=== PATIENT | male | born 1940 | race Caucasian/White ===

== ENCOUNTER 2022-09-06 12:05 | Day surgery (SDC) | payer OTHER ==
[2022-09-06] VITALS (9 sets, daily range): BP systolic 135–176; BP diastolic 75–105
[~2022-09-06] VITALS: Ht 175.3 cm; Wt 88.4 kg
[2022-09-06] MEDS ORDERED: LORazepam 0.5 MG tablet PO PRN (12:25)
[2022-09-06] MEDS ORDERED: diphenhydrAMINE 25mg capsule PO PRN (12:25)
[2022-09-06] MEDS ORDERED: normal saline 1,000 ML IV SCH (12:25)
[2022-09-06] MEDS ORDERED: MULT-1249 PO (12:34)
[2022-09-06] MEDS ORDERED: EZET10TA48 PO (12:34)
[2022-09-06] MEDS ORDERED: ATOR-2 PO (12:34)
[2022-09-06] MEDS ORDERED: ASPI-611 PO (12:34)
[2022-09-06] MEDS ORDERED: NITR0.4T48 SL (12:34)
[2022-09-06 12:58] LABS: ALBUMIN 3.9 G/DL (3.4-5.0); ANION GAP 8 (8-16); BLOOD UREA NITROGEN 18 MG/DL (7-18); BUN/CREATININE RATIO 19.4 (10.0-20.0); CALCIUM 9.2 MG/DL (8.5-10.1); CHLORIDE 106 MMOL/L (99-107); CREATININE 0.93 MG/DL (0.60-1.10); GLUCOSE 104 MG/DL (70-104); POTASSIUM 4.3 MMOL/L (3.5-5.1); SODIUM 140 MMOL/L (135-145); TOTAL CARBON DIOXIDE 26.5 MMOL/L (24-32); eGFR 78 ML/MIN
[2022-09-06 13:09] LABS: BASOPHILS % (AUTO) 0.3 % (0-1); EOSINOPHILS # (AUTO) 0.4 X10'3 (0-0.9); EOSINOPHILS % (AUTO) 4.3 % (0-6); HEMATOCRIT 46.6 % (42.0-52.0); HEMOGLOBIN 15.4 g/dl (14.0-17.9); LYMPHOCYTES # (AUTO) 1.9 X10'3 (1.1-4.8); MEAN CORPUSCULAR HEMOGLOBIN 31.8 PG (27.0-31.0); MEAN CORPUSCULAR HGB CONC 33.1 g/dL (33.0-36.5); MEAN CORPUSCULAR VOLUME 95.9 FL (78-98); MEAN PLATELET VOLUME 8.4 FL (7.4-10.4); MONOCYTES # (AUTO) 0.9 X10'3 (0-0.9); MONOCYTES % (AUTO) 9.2 % (2-12); NEUTROPHILS # (AUTO) 6.5 X10'3 (1.8-7.7); NEUTROPHILS % (AUTO) 67.2 % (42-75); PLATELET COUNT 171 X10'3 (140-440); RED BLOOD COUNT 4.86 X10'6 (4.70-6.10); RED CELL DISTRIBUTION WIDTH 13.9 % (11.5-14.5); WHITE BLOOD COUNT 9.7 X10'3 (4.5-11.0)
[2022-09-06] MEDS ORDERED: ACET-1025 PO (13:21)
[2022-09-06 13:36] LABS: APTT 32 SECONDS (22-32)
[2022-09-06] MEDS ORDERED: verapamil 2.5 mg/ml inj IV ONE (13:59)
[2022-09-06] MEDS ORDERED: midazolam 1 mg/ML 2ml injection ONE (13:59)
[2022-09-06] MEDS ORDERED: LIDOcaine 1% (10mg/ml) 2ml vial ONE (13:59)
[2022-09-06] MEDS ORDERED: nitroGLYCERIN-Tridil 50MG/D5W 250 ML IV ONE (13:59)
[2022-09-06] MEDS ORDERED: fentaNYL/PF 50MCG/1 ML 2ML syringe ONE (13:59)
[2022-09-06] MEDS ORDERED: heparin 1,000unit/ml 10ml vial 10 ML ONE (14:00)
[2022-09-06] MEDS ORDERED: iohexol 350MG/ML 100ml bottle IV ONE (14:00)
[2022-09-06] MEDS ORDERED: LIDOcaine 1% 30ml preserv. free vial ONE (15:02)
[2022-09-06 15:53] LABS: ISTAT HGB ART 13.9 g/dl (14.0-17.9); ISTAT Hct ART 41 %PCV (42-52); ISTAT O2 SATURATION ARTERIAL 93 % (95-98); ISTAT SOURCE ART
[2022-09-06] MEDS ORDERED: ondansetron/PF 4mg/2ml inj IV PRN (16:20)
[2022-09-06] MEDS ORDERED: OXAZEpam 15mg capsule PO PRN (16:20)
[2022-09-06] MEDS ORDERED: proCHLORperazine 10 MG/2 ml inj IV PRN (16:20)
[2022-09-06 16:22] LABS: ISTAT Hct MIX 42 %PCV (42-52); ISTAT O2 SATURATION MIX VENOUS 70 % (60-80); ISTAT SOURCE VEN
[2022-09-06] MEDS ORDERED: HYDROcodone/acetaminophen 10/325mg tab PO PRN (16:35)
[2022-09-06] MEDS ORDERED: HYDROcodone/acetaminophen 5mg/325mg tablet PO PRN (16:35)
== END 2022-09-06 18:05 | disposition home or self-care (01) ==
LOC: SSTAY O 12:05
PROVIDERS: ATTEND Student in an Organized Health Care Education/Training Program
DX: I35.0 Nonrheumatic aortic (valve) stenosis (principal); T82.855A Stenosis of coronary artery stent, initial encounter; I25.10 Atherosclerotic heart disease of native coronary artery without angina pectoris; I10 Essential (primary) hypertension; I49.5 Sick sinus syndrome; Z88.5 Allergy status to narcotic agent; Z88.8 Allergy status to other drugs, medicaments and biological substances; Z95.0 Presence of cardiac pacemaker; Z79.01 Long term (current) use of anticoagulants; Z79.899 Other long term (current) drug therapy; Z85.46 Personal history of malignant neoplasm of prostate; Z93.2 Ileostomy status; Z98.890 Other specified postprocedural states; Y84.0 Cardiac catheterization as the cause of abnormal reaction of the patient, or of later complication, without mention of misadventure at the time of the procedure
CPT/HCPCS: 36415; 80048; 82803; 85014; 85025; 85610; 85730; 93005; 93456; 99152; 99153; C1894; J1644; J2250; J3010; J3490; J7030; Q0163; Q9967; A6258; C1751

== ENCOUNTER 2023-08-03 11:33 | Outpatient (CLI) | payer OTHER ==
[~2023-08-03 11:33] MED LIST: ACET-1025 PO; ASPI-611 PO; ATOR-2 PO; EZET10TA48 PO; MULT-1249 PO; NITR0.4T48 SL
[2023-08-03 12:12] LABS: BASOPHILS % (AUTO) 0.5 % (0-1); EOSINOPHILS # (AUTO) 0.4 X10'3 (0-0.9); EOSINOPHILS % (AUTO) 5.4 % (0-6); LYMPHOCYTES # (AUTO) 1.9 X10'3 (1.1-4.8); LYMPHOCYTES % (AUTO) 23.7 % (21-51); MEAN CORPUSCULAR HEMOGLOBIN 31.8 PG (27.0-31.0); MEAN CORPUSCULAR HGB CONC 33.4 g/dL (33.0-36.5); MEAN CORPUSCULAR VOLUME 95.4 FL (78-98); MEAN PLATELET VOLUME 8.5 FL (7.4-10.4); MONOCYTES % (AUTO) 12.8 % (2-12); NEUTROPHILS # (AUTO) 4.7 X10'3 (1.8-7.7); NEUTROPHILS % (AUTO) 57.6 % (42-75); PLATELET COUNT 142 X10'3 (140-440); RED CELL DISTRIBUTION WIDTH 14.3 % (11.5-14.5); WHITE BLOOD COUNT 8.1 X10'3 (4.5-11.0)
[2023-08-03] MEDS ORDERED: IODIXANOL 320 MG/ML INFUS..BTL 100ML IV ONE (12:22)
[2023-08-03 12:27] LABS: ALANINE AMINOTRANSFERASE 66 U/L (12-78); ALBUMIN 3.4 G/DL (3.4-5.0); ALKALINE PHOSPHATASE 111 IU/L (46-116); ANION GAP 12 (8-16); APTT 34 SECONDS (22-32); ASPARTATE AMINO TRANSFERASE 33 U/L (10-37); BLOOD UREA NITROGEN 17 MG/DL (7-18); BUN/CREATININE RATIO 17.5 (10.0-20.0); CALCIUM 8.8 MG/DL (8.5-10.1); CHLORIDE 109 MMOL/L (99-107); CREATININE 0.97 MG/DL (0.60-1.10); GLUCOSE 76 MG/DL (70-104); PROTHROMBIN TIME 10.9 SECONDS (9.0-12.0); SODIUM 144 MMOL/L (135-145); TOTAL CARBON DIOXIDE 23.1 MMOL/L (24-32); TOTAL PROTEIN 6.9 G/DL (6.4-8.2); eGFR 74 ML/MIN
[2023-08-03 12:34] LABS: PRO BRAIN NATRIURETIC PEPTIDE 359 PG/ML (0-450)
== END 2023-08-03 23:59 | disposition home or self-care (01) ==
LOC: RAD 11:33
PROVIDERS: ATTEND Internal Medicine Cardiovascular Disease
DX: K40.90 Unilateral inguinal hernia, without obstruction or gangrene, not specified as recurrent (principal); I35.0 Nonrheumatic aortic (valve) stenosis; R06.02 Shortness of breath; I65.29 Occlusion and stenosis of unspecified carotid artery; I71.40 Abdominal aortic aneurysm, without rupture, unspecified; I70.0 Atherosclerosis of aorta; I51.7 Cardiomegaly; N28.89 Other specified disorders of kidney and ureter; M47.819 Spondylosis without myelopathy or radiculopathy, site unspecified; Z98.890 Other specified postprocedural states
CPT/HCPCS: 36415; 71046; 71275; 74174; 75572; 80053; 83880; 85025; 85610; 85730; J3490; Q9967